=== PATIENT | female | born 1950 | race Caucasian/White ===

== ENCOUNTER 2018-03-30 00:05 | Emergency (ER) | payer OTHER ==
[2018-03-30 01:02] LABS: Absolute Lymphocytes (CBC) 2.2 K/uL (0.7-4.9); Absolute Monocytes 0.6 K/uL (0.1-1.3); Absolute Neutrophil 4.3 K/uL (1.8-8.0); Basophils % 0.9 % (0-1.3); Eosinophils % 2.9 % (0-4.4); Hematocrit 37.9 % (36.0-45.0); Lymphocytes % 29.6 % (15.3-44.8); MPV 9.1 fL (7.6-11.3); Monocytes % 8.1 % (3.3-12.3); RBC Red Blood Cell Count 4.13 M/uL (3.86-4.86)
[2018-03-30 01:03] LABS: Protime INR 0.96
[2018-03-30 01:17] LABS: ALT/SGPT 34 U/L (12-78); AST/SGOT 25 U/L (15-37); Albumin 3.8 g/dL (3.4-5.0); Alkaline Phosphatase 56 U/L (45-117); BUN Blood Urea Nitrogen 24 mg/dL (7-18); Bicarbonate 29 mmol/L (21-32); Bilirubin Direct < 0.1 mg/dL (0-0.2); Bilirubin Total 0.3 mg/dL (0.2-1.0); Glucose Level 92 mg/dL (74-106); Magnesium 2.1 mg/dL (1.8-2.4); NT PRO-BNP 155 pg/mL (<125); Potassium 4.1 mmol/L (3.5-5.1); Protein, Total 7.1 g/dL (6.4-8.2); Sodium Level 139 mmol/L (136-145); Troponin (Emerg Dept Use Only) < 0.02 ng/mL (0.0-0.045)
[2018-03-30] MEDS ORDERED: ASPIRIN 81 MG CHEWABLE TABLET ONE (02:04)
--- NOTE | 2018-03-30 04:25 | ER ---
Nurse's Notes [facility] Name: Adelia Driver Age: 67 yrs Sex: Female : 1950 Arrival Date: 03/30/2018 Time: 00:06 Bed 8 Private MD: Sukhdev Shrestha Diagnosis: Chest pain, unspecified Presentation: 03/30 00:14 Presenting complaint: Patient states: she just got in bed tonight and started having bb back and chest pain which is constant but does not radiate pain is 7/10 denies similar symptoms in the past. Transition of care: patient was not received from another setting of care. Onset of symptoms was March 30, 2018. Risk Assessment: Do you want to hurt yourself or someone else? Patient reports no desire to harm self or others. Initial Sepsis Screen: Does the patient meet any 2 criteria? No. Patient's initial sepsis screen is negative. Does the patient have a suspected source of infection? No. Patient's initial sepsis screen is negative. Care prior to arrival: None. 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 - Social history:: Smoking status: Patient/guardian denies using tobacco, Patient uses alcohol, occasionally. Patient/guardian denies using street drugs. - Ebola Screening: : No symptoms or risks identified at this time. Screenin:40 Abuse screen: Denies threats or abuse. Nutritional screening: No deficits noted. tl2 Tuberculosis screening: No symptoms or risk factors identified. Fall Risk None identified. Assessment: 00:40 General: Appears in no apparent distress. uncomfortable, Behavior is calm, cooperative, tl2 appropriate for age. Pain: Complains of pain in mid-sternal area Pain does not radiate. Pain currently is 5 out of 10 on a pain scale. Quality of pain is described as sharp, Pain began 1 hour ago. Is intermittent. Neuro: Level of Consciousness is awake, alert, obeys commands, Oriented to person, place, time, situation. Neuro: Denies dizziness. Cardiovascular: Chest pain is described as mild, quality is sharp, is located in anterior substernal area began 1 hour prior to arrival episodes are intermittent. Respiratory: Airway is patent Respiratory effort is even, unlabored, Respiratory pattern is regular, symmetrical. GI: No signs and/or symptoms were reported involving the gastrointestinal system. : No signs and/or symptoms were reported regarding the genitourinary system. Derm: Skin is pink, warm \T\ dry. 01:30 Reassessment: Patient appears in no apparent distress at this time. Patient and/or tl2 family updated on plan of care and expected duration. Pain level reassessed. Patient is alert, oriented x 3, equal unlabored respirations, skin warm/dry/pink. PA at bedside. 02:39 Reassessment: Patient appears in no apparent distress at this time. Patient and/or tl2 family updated on plan of care and expected duration. Pain level reassessed. Patient is alert, oriented x 3, equal unlabored respirations, skin warm/dry/pink. pt states her chest pain has not returned since arrival to ED. awaiting lab results Patient states feeling better. 03:40 Reassessment: Patient appears in no apparent distress at this time. Patient and/or tl2 family updated on plan of care and expected duration. Pain level reassessed. Patient is alert, oriented x 3, equal unlabored respirations, skin warm/dry/pink. awaiting troponin results. 04:41 Reassessment: Patient appears in no apparent distress at this time. Patient and/or tl2 family updated on plan of care and expected duration. Pain level reassessed. Patient is alert, oriented x 3, equal unlabored respirations, skin warm/dry/pink. pt verbalized understanding of discharge instructions, need for followup. Vital Signs: 00:17 BP 148 / 69; Pulse 58; Resp 14 S; Temp 98.2(O); Pulse Ox 100% on R/A; Weight 81.19 kg bb (R); Height 5 ft. 5 in. (165.10 cm) (R); Pain 7/10; 01:29 BP 110 / 68; Pulse 57; Resp 12; Pulse Ox 99% on R/A; tl2 02:39 BP 121 / 61; Pulse 54; Resp 18; Pulse Ox 95% on R/A; Pain 0/10; tl2 03:39 BP 113 / 54; Pulse 55; Resp 16; Pulse Ox 96% on R/A; tl2 00:17 Body Mass Index 29.79 (81.19 kg, 165.10 cm) Vitals: 00:40 Cardiac Rhythm Assessment Sinus miki. tl2 ED Course: 00:06 Patient arrived in ED. es 00:06 Sukhdev Shrestha MD is Private Physician. es 00:16 Triage completed. bb 00:17 Arm band placed on Patient placed in an exam room, on a stretcher. EKG completed in bb triage. Results shown to MD. Family accompanied patient. 00:21 Casey Cardenas PA is PHCP. jr8 00:21 Vincent Cleary MD is Attending Physician. jr8 00:39 Kathe Jackson RN is Primary Nurse. tl2 00:40 Patient has correct armband on for positive identification. Bed in low position. Call tl2 light in reach. Side rails up X 1. night monitor on. Pulse ox on. NIBP on. 00:40 Inserted saline lock: 22 gauge in right antecubital area, using aseptic technique. tl2 Blood collected. Patient maintains SpO2 saturation greater than 95% on room air. 00:56 X-ray completed. Portable x-ray completed in exam room. Patient tolerated procedure sg4 well. 00:57 XRAY Chest (1 view) In Process Unspecified. EDMS 04:24 Tye Fernandez MD is Referral Physician. kdr 04:41 No provider procedures requiring assistance completed. IV discontinued, intact, tl2 bleeding controlled, No redness/swelling at site. Pressure dressing applied. Administered Medications: 02:02 Drug: Aspirin Chewable Tablet 324 mg Route: PO; tl2 04:42 Follow up: Response: No adverse reaction tl2 Outcome: 04:24 Discharge ordered by MD. kdr 04:41 Discharged to home ambulatory, with family. tl2 04:41 Condition: stable 04:41 Discharge instructions given to patient, Instructed on discharge instructions, follow up and referral plans. Demonstrated understanding of instructions, follow-up care. 04:42 Patient left the ED. tl2 Signatures: Dispatcher [employer] EDKS Vincent Cleary MD MD kdr Salyer, Edna es Ballard, Brenda, RN RN bb Casey Cardenas PA PA jr8 Kathe Jackson, RN RN tl2 Chula Garcia sg4 Corrections: (The following items were deleted from the chart) 01:29 01:28 BP 132 / 90; Pulse 59bpm; Resp 16bpm; Pulse Ox 97% RA; tl2 tl2
--- NOTE | 2018-03-30 04:25 | EDPHYS ---
Physician Documentation [facility] Name: Adelia Driver Age: 67 yrs Sex: Female : 1950 Arrival Date: 03/30/2018 Time: 00:06 Bed 8 Private MD: Sukhdev Shrestha ED Physician Vincent Cleary HPI: 03/30 01:42 This 67 yrs old Female presents to ER via Ambulatory with complaints of Chest jr8 Pain, Back Pain. 01:42 Onset: acutely, today. Associated signs and symptoms: The patient has no apparent jr8 associated signs or symptoms. The chest pain is described as squeezing. Duration: The patient or guardian reports a single episode, that lasted 2 hour(s). The patient has not experienced similar symptoms in the past. The patient has not recently seen a physician. Patient stated that she went to lay down at 11pm tonight. At 11:15 had sudden back pain between shoulder blades that went to mid chest. Denies any other symptoms. Has completely resolved since then. Denies having this in past . 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 - Social history:: Smoking status: Patient/guardian denies using tobacco, Patient uses alcohol, occasionally. Patient/guardian denies using street drugs. - Ebola Screening: : No symptoms or risks identified at this time. ROS: 01:42 Eyes: Negative for injury, pain, redness, and discharge, ENT: Negative for injury, jr8 pain, and discharge, Neck: Negative for injury, pain, and swelling, Respiratory: Negative for shortness of breath, cough, wheezing, and pleuritic chest pain, Abdomen/GI: Negative for abdominal pain, nausea, vomiting, diarrhea, and constipation, Back: Negative for injury and pain, MS/Extremity: Negative for injury and deformity, Skin: Negative for injury, rash, and discoloration, Neuro: Negative for headache, weakness, numbness, tingling, and seizure. 01:42 Cardiovascular: Positive for chest pain, Negative for edema, orthopnea, palpitations, paroxysmal nocturnal dyspnea. Exam: 01:42 Eyes: Pupils equal round and reactive to light, extra-ocular motions intact. Lids and jr8 lashes normal. Conjunctiva and sclera are non-icteric and not injected. Cornea within normal limits. Periorbital areas with no swelling, redness, or edema. ENT: Nares patent. No nasal discharge, no septal abnormalities noted. Tympanic membranes are normal and external auditory canals are clear. Oropharynx with no redness, swelling, or masses, exudates, or evidence of obstruction, uvula midline. Mucous membranes moist. Neck: Trachea midline, no thyromegaly or masses palpated, and no cervical lymphadenopathy. Supple, full range of motion without nuchal rigidity, or vertebral point tenderness. No Meningismus. Chest/axilla: Normal chest wall appearance and motion. Nontender with no deformity. No lesions are appreciated. Cardiovascular: Regular rate and rhythm with a normal S1 and S2. No gallops, murmurs, or rubs. Normal PMI, no JVD. No pulse deficits. Respiratory: Lungs have equal breath sounds bilaterally, clear to auscultation and percussion. No rales, rhonchi or wheezes noted. No increased work of breathing, no retractions or nasal flaring. Abdomen/GI: Soft, non-tender, with normal bowel sounds. No distension or tympany. No guarding or rebound. No evidence of tenderness throughout. Back: No spinal tenderness. No costovertebral tenderness. Full range of motion. Skin: Warm, dry with normal turgor. Normal color with no rashes, no lesions, and no evidence of cellulitis. MS/ Extremity: Pulses equal, no cyanosis. Neurovascular intact. Full, normal range of motion. Neuro: Awake and alert, GCS 15, oriented to person, place, time, and situation. Cranial nerves II-XII grossly intact. Motor strength 5/5 in all extremities. Sensory grossly intact. Cerebellar exam normal. Normal gait. Vital Signs: 00:17 BP 148 / 69; Pulse 58; Resp 14 S; Temp 98.2(O); Pulse Ox 100% on R/A; Weight 81.19 kg bb (R); Height 5 ft. 5 in. (165.10 cm) (R); Pain 7/10; 01:29 BP 110 / 68; Pulse 57; Resp 12; Pulse Ox 99% on R/A; tl2 02:39 BP 121 / 61; Pulse 54; Resp 18; Pulse Ox 95% on R/A; Pain 0/10; tl2 03:39 BP 113 / 54; Pulse 55; Resp 16; Pulse Ox 96% on R/A; tl2 00:17 Body Mass Index 29.79 (81.19 kg, 165.10 cm) bb MDM: 00:30 Patient medically screened. jr8 03:28 The patient was given aspirin in the Emergency Department. Data reviewed: vital signs, jr8 nurses notes, lab test result(s), EKG, radiologic studies, plain films. Data interpreted: Pulse oximetry: on room air is 95 %. Interpretation: normal. Counseling: I had a detailed discussion with the patient and/or guardian regarding: the historical points, exam findings, and any diagnostic results supporting the discharge/admit diagnosis, lab results, radiology results, the need for outpatient follow up, a jet mechanic, to return to the emergency department if symptoms worsen or persist or if there are any questions or concerns that arise at home. 03/30 00:31 Order name: Basic Metabolic Panel; Complete Time: 01:03/30 00:31 Order name: CBC with Diff; Complete Time: 01:06 03/30 00:31 Order name: LFT's; Complete Time: 03/30 00:31 Order name: Magnesium; Complete Time: :03/30 00:31 Order name: NT PRO-BNP; Complete Time: :03/30 00:31 Order name: PT-INR; Complete Time: 01:13 03/30 00:31 Order name: Troponin (emerg Dept Use Only); Complete Time: 01:03/30 00:31 Order name: XRAY Chest (1 view) 03/30 00:31 Order name: EKG; Complete Time: 00:32 03/30 00:31 Order name: Cardiac monitoring; Complete Time: 00:39 03/30 00:31 Order name: EKG - Nurse/Tech; Complete Time: 00:39 03/30 00:31 Order name: IV Saline Lock; Complete Time: 00:39 03/30 02:56 Order name: Troponin (emerg Dept Use Only); Complete Time: 04:24 8 03/30 00:31 Order name: Labs collected and sent; Complete Time: 00:39 8 03/30 00:31 Order name: O2 Per Protocol; Complete Time: 00:39 8 03/30 00:31 Order name: O2 Sat Monitoring; Complete Time: 00:40 jr8 Administered Medications: 02:02 Drug: Aspirin Chewable Tablet 324 mg Route: PO; tl2 04:42 Follow up: Response: No adverse reaction tl2 Disposition: 04:24 Co-signature as Attending Physician, Vincent Cleary MD I agree with the assessment and kdr plan of care. Disposition: 03/30/18 04:24 Discharged to Home. Impression: Chest pain, unspecified. - Condition is Stable. - Discharge Instructions: Nonspecific Chest Pain. - Medication Reconciliation Form, Thank You Letter form. - Follow up: Tye Fernandez; When: 5 - 6 days; Reason: Recheck today's complaints, Continuance of care, Re-evaluation by your physician. - Problem is new. - Symptoms are resolved. Signatures: Dispatcher [employer] EDWI Vincent Cleary MD MD kdr Carmen Quintanilla RN RN bb Casey Cardenas PA PA jr8 Kathe Jackson RN RN tl2 Corrections: (The following items were deleted from the chart) 04:42 04:24 03/30/2018 04:24 Discharged to Home. Impression: Chest pain, unspecified. tl2 Condition is Stable. Discharge Instructions: Nonspecific Chest Pain. Forms are Medication Reconciliation Form, Thank You Letter, Antibiotic Education, Prescription Opioid Use. Follow up: Tye Fernandez; When: 5 - 6 days; Reason: Recheck today's complaints, Continuance of care, Re-evaluation by your physician. Problem is new. Symptoms are resolved. kdr
--- NOTE | 2018-03-30 08:27 | EKG ---
Test Date: 2018-03-30 Test Time: 00:10:35 Application Integration Specialist: SONYA MEASUREMENT RESULTS: Intervals: Rate: 52 WA: 146 QRSD: 88 QT: 434 QTc: 403 [place]: P: 71 WA: 146 QRS: 45 T: 56 INTERPRETIVE STATEMENTS: Sinus bradycardia Otherwise normal ECG No previous ECG available for comparison Electronically Signed On 03-30-18 08:26:21 PIANO TECHNICIAN by Bib Bowens
--- NOTE | 2018-03-30 09:44 | RAD REPORT ---
EXAM DESCRIPTION: RAD - Chest Single View - 03/30/2018 12:57 am CLINICAL HISTORY: Back pain, chest pain COMPARISON: CT head and cervical September 2015. TECHNIQUE: AP portable chest image was obtained 0051 hours . FINDINGS: Lungs are clear. A few small granulomas are seen. Heart and vasculature are normal. No catalino surable pleural effusion and no pneumothorax. Fullness along the right side mediastinum believed to b e normal vasculature. Similar appearance was seen on a September 2015 CT law writer film. No acute aortic findi ngs suspected. IMPRESSION: No acute cardiopulmonary process.
== END 2018-03-30 04:42 | disposition home or self-care (01) ==
LOC: ER 00:05
DX: R07.9 Chest pain, unspecified (principal)
CPT/HCPCS: 36415; 71045; 80048; 80076; 83735; 83880; 84484; 85025; 85610; 93005; 99285

== ENCOUNTER 2023-09-06 08:19 | Day surgery (SDC) | payer OTHER ==
[2023-09-04 13:11] LABS: Absolute Eosinophils 0.1 K/uL (0-0.5); Absolute Lymphocytes (CBC) 1.4 K/uL (0.7-4.9); Absolute Monocytes 0.4 K/uL (0.1-1.3); Absolute Neutrophil 1.7 K/uL (1.8-8.0); Basophils % 0.6 % (0-1.3); Eosinophils % 3.7 % (0-4.4); Hematocrit 37.1 % (36.0-45.0); Hemoglobin 12.4 g/dL (12.0-15.0); Lymphocytes % 37.3 % (15.3-44.8); MCH 31.2 pg (27.0-35.0); MCHC 33.4 g/dL (32.0-36.0); MCV 93.6 fL (80-100); MPV 8.6 fL (7.6-11.3); Monocytes % 10.3 % (3.3-12.3); Neutrophils % 48.1 % (41.7-73.7); Platelets 190 thou/uL (152-406); RBC Red Blood Cell Count 3.96 M/uL (3.86-4.86); Red Cell Distribution Width 13.5 % (12.1-15.2)
--- NOTE | 2023-09-04 13:16 | EKG ---
Test Date: 2023-09-04 Test Time: 13:05:50 Materials Planning Manager: IVETTE MEASUREMENT RESULTS: Intervals: Rate: 62 CT: 140 QRSD: 86 QT: 418 QTc: 424 [place]: P: 68 CT: 140 QRS: -28 T: 76 INTERPRETIVE STATEMENTS: Normal sinus rhythm with sinus arrhythmia Normal ECG Compared to ECG 03/30/2018 00:10:35 Sinus bradycardia no longer present Electronically Signed On 09-04-23 13:15:59 CDT by Luis Kahn
[2023-09-04 13:25] LABS: Anion Gap 6.1 mEq/L (5.0-15.0); Potassium 4.1 mEq/L (3.5-5.1)
--- NOTE | 2023-09-04 13:45 | RAD REPORT ---
EXAM DESCRIPTION: Mariah Ortiz (2 Views)09/04/2023 1:18 pm CLINICAL HISTORY: Preop for vaginal surgery COMPARISON: 2018 FINDINGS: Lungs are moderately hyperaerated. The lungs appear clear of acute infiltrate. The heart is normal size IMPRESSION: No acute abnormalities displayed
[2023-09-06] MEDS ORDERED: SCOPOLAMINE HYDROBROMIDE PATCH TD ONE (08:30)
[2023-09-06] MEDS ORDERED: FENTANYL CITR 100 MCG/2 ML ONE (09:03)
[2023-09-06] MEDS ORDERED: propofoL 200 MG/20 ML VIAL IV ONE ×2 (09:03→10:37)
[2023-09-06] MEDS: Ringers Lactate 1,000 ML IV ONE (09:03)
[2023-09-06] MEDS ORDERED: ONDANSETRON 4 MG/2 ML VIAL ONE (09:03)
[2023-09-06] MEDS ORDERED: LIDOCAINE 2% MPF 5 ML VIAL ONE (09:03)
[2023-09-06] MEDS: CEFAZOLIN SODIUM 2 GM/VIAL ONE (09:27)
[2023-09-06] MEDS: LIDOCAINE HCL/EPINEPHRINE 20 ML MDV ONE (09:27)
[2023-09-06] MEDS ORDERED: EPHEDRINE SULF 50 MG/ML VIAL ONE (10:53)
[2023-09-06 11:55] VITALS: O2SAT 100
[2023-09-06 12:30] VITALS: BP 150/97
[2023-09-06 12:48] VITALS: TEMP 97
--- NOTE | 2023-09-06 22:46 | OP ---
Date of Procedure: 09/06/2023 Surgeon: Baylee Alaniz MD Appliance Servicer: No assistants. Preoperative Diagnosis: Vulvar intraepithelial neoplasia 3. 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 Procedures Performed: 1.Vulvar colposcopy and wide local excision of vulvar intraepithelial neoplasia 3. 2.Perineoplasty with perineal body reconstruction. Anesthesia: General with LMA, converted to endotracheal tube. Specimens: Vulvar lesion marked with a long stitch at the superior margin and a short stitch at the left lateral margin. Estimated Blood Loss: 25. Fluids: 800. Urine Output: No catheter placed. The patient voided prior to the procedure. Complications: No complications. Drains: No drains. Patient's Condition: Stable. Findings: The colposcopy showed a well-circumscribed lesion on the perineum, extending slightly over into the distal portion of the vestibule. Margins of at least 5 mm taken on all sides excised. The perineal body defect was obvious and had to be corrected alongside the perineoplasty to reconstruct the defect. Full-thickness skin was excised in this area, and reconstruction performed with advancement flaps from the vagina and lateral margin s and on the perineum. 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 This was then examined under colposcopy and biopsied, which showed NIRU 3. She was counseled on the pathogenesis of this lesion in relation to HPV, and treatment of preference was wide local excision. After the patient was consented, she was then brought to the hospital. She was also consented for a perineoplasty or perineorrhaphy. The perineocele repair as indicated during the procedure. Procedure In Detail: After informed consent was re-verified, she was taken back to OR, placed in a s upine fashion on the operating table. General anesthesia was given. 2 g of Ancef was given. SCDs w ere started. Time-out was done. Positioning was checked. Vulvar colposcopy was performed. The lesion was well visualized. No other satellite lesions were no keshawn, and this was very circumscribed. Betadine prep was done and appropriate draping was placed on all sides. After changing the gloves, then the margins of the excision were marked with a marking pen, making portillo re there was 5 mm on all sides. 1% lidocaine with epinephrine was injected, 15 cc in and around the lesion. The lesion was excised with a 15 blade. The margins were all incised, full thickness into t he skin and then once I got into the subcutaneous tissues, this was excised with the help of the mono polar cautery needle tip. The lesion was marked as dictated above with a long stitch at the superior margin and a short stitch at the left margin. This was handed off for permanent pathology. Perineoplasty: Advancement flaps were created on the skin on the perineum, on the lateral margins, i nferior margin as well as on upper lateral margins. The vaginal epithelium was also raised and posterior rectovaginal septum was exposed. The perineal b selene was not fully intact with the superficial transverse perinei , so the excision went down on to the sphincter, which is the external anal sphincter. The closure here was performed with 3-0 Vicryl sutures in an interrupted fashion [id number] x2 to bring these together. Then, with a 2- 0 Vicryl in a continuous running fashion, 2 layers of closure was performed to reconstruct the perine al body and take the tension off the edges of the excision. Then, 2-0 Vicryl was then used with 2 in terrupted sutures to bring the distal rectovaginal septum and re-attach it to the perineal body. Onc e this was completed, 2-0 Vicryl was used to continuously close the vaginal epithelium until the top part of the vestibule, then 3-0 Vicryl was used to perform a subcutaneous closure on the perineum and vestibule, and closed in a subcuticular fashion coming back up. Rectal exam was performed and did n ot demonstrate any trauma or foreign body in the rectum. The patient was recovered from anesthesia. Instrument, needle, and sponge counts were correct at the end of the case. The patient tolerated th e procedure well. Her family was debriefed about her procedure, and she will follow up in 1 week for pathology results, and 1-week postop appointment, followed by 6-week postop appointment. Instructio ns given. JOIE/LAVONNE Voice ID: [id number] Report ID: [id number]
== END 2023-09-06 13:12 | disposition home or self-care (01) ==
LOC: OR 08:19
PROVIDERS: ATTEND Obstetrics & Gynecology
PROC: 0HQ9XZZ Repair Perineum Skin, External Approach (ICD-10-PCS; 2023-09-06)
PROC: 0UU Female Reproductive System, Supplement (ICD-10-PCS; 2023-09-06)
PROC: 0UBM0ZZ Excision of Vulva, Open Approach (ICD-10-PCS; principal; 2023-09-06 09:30)
DX: D07.1 Carcinoma in situ of vulva (principal)
CPT/HCPCS: 11622; 14040; 56810; 93005; 85025; 80048; 36415; 88305; 71046; J2704 ×2; J2001; J3010; J2405; J7120

== ENCOUNTER 2024-01-26 11:49 | Emergency (ER) | payer OTHER ==
--- NOTE | 2024-01-26 13:20 | EDPHYS ---
Physician Documentation [facility] Name: Adelia Driver Age: 73 yrs Sex: Female : 1950 Arrival Date: 01/26/2024 Time: 11:49 Bed 12 Private MD: ED Physician Franko Chu HPI: 01/25 12:19 This 73 yrs old Female presents to ER via Ambulatory with complaints of Wrist Injury - kb left. 12:19 Pt is a 73 year old female who presents for pain and swelling to left wrist after a kb fall on her patio yesterday. States pain increased when twisting wrist. Denies any other injuries. Historical: - Allergies: 12:16 No Known Allergies; ss - PMHx: 12:16 None; ss - Immunization history:: Client reports receiving the 2nd dose of the Covid vaccine. - Infectious Disease History:: Denies. - Social history:: Smoking status: Patient denies any tobacco usage or history of. ROS: 12:18 Constitutional: As per HPI kb Exam: 12:18 Constitutional: This is a well developed, well nourished patient who is awake, alert, kb and in no acute distress. Head/Face: Normocephalic, atraumatic. ENT: Moist Mucous membranes Cardiovascular: Regular rate Respiratory: Respirations even and unlabored. No increased work of breathing. Talking in full sentences Skin: Warm, dry with normal turgor. Normal color. Neuro: Awake and alert, GCS 15, oriented to person, place, time, and situation. 12:18 Musculoskeletal/extremity: Extremities: grossly normal except: noted in the left forearm: decreased ROM, pain, swelling, tenderness, ROM: limited active range of motion, Circulation is intact in all extremities. Sensation intact. Vital Signs: 12:13 BP 119 / 57; Pulse 62; Resp 16; Temp 98.2(O); Pulse Ox 98% on R/A; Weight 76.66 kg; ss Height 5 ft. 5 in. ; Pain 7/10; 12:13 Body Mass Index 28.12 (76.66 kg, 165.1 cm) 12:13 Pain Scale: Adult ss 12:13 0/10 when not moving. ss MDM: 11:54 Medical Screening Exam initiated kb 12:18 Differential diagnosis: fracture, sprain. Data reviewed: vital signs, nurses notes. kb 13:08 Counseling: I had a detailed discussion with the patient and/or guardian regarding the kb historical points, exam findings, and any diagnostic results supporting the discharge/admit diagnosis, radiology results, the need for outpatient follow up, a orthopedic surgeon, to return to the emergency department if symptoms worsen or persist or if there are any questions or concerns that arise at home. 13:19 Historians other than the Patient: Spouse/Significant Other: spouse. kb 01/25 12:13 Order name: Forearm Left XRAY ss 01/25 13:08 Order name: Sugar Tong Forearm Splint; Complete Time: 13:32 kb 01/25 13:08 Order name: Splint; Complete Time: 13:32 kb Administered Medications: No medications were administered Disposition Summary: 01/26/24 13:20 Discharge Ordered Notes: Location: Home kb Condition: Stable kb Diagnosis - Distal radius fracture - left kb Followup: kb - With: Emergency Department - When: As needed - Reason: Worsening of condition Followup: kb - With: Private Physician - When: 2 - 3 days - Reason: Recheck today's complaints, Continuance of care, Re-evaluation by your physician Discharge Instructions: - Discharge Summary Sheet kb - Radial Fracture kb Forms: - Medication Reconciliation Form kb - Antibiotic Education kb - Prescription Opioid Use kb - Patient Portal Instructions kb - Leadership Thank You Letter kb Signatures: Dispatcher [employer] Marium Fisher, LYNN-Raymond AGUIRREP-Mary Echevarria, RN RN ss
--- NOTE | 2024-01-26 13:20 | ER ---
Nurse's Notes [facility] Name: Adelia Driver Age: 73 yrs Sex: Female : 1950 Arrival Date: 01/26/2024 Time: 11:49 Bed 12 Private MD: Diagnosis: Distal radius fracture - left Presentation: 01/25 12:13 Chief complaint: Patient states: L wrist/ forearm pain after falling from a standing ss position. Coronavirus screen: Client denies travel out of the [place] in the last 14 days. Ebola Screen: Patient denies exposure to infectious person. Patient denies travel to an Ebola-affected area in the 21 days before illness onset. Initial Sepsis Screen: Does the patient meet any 2 criteria? No. Patient's initial sepsis screen is negative. Does the patient have a suspected source of infection? No. Patient's initial sepsis screen is negative. Risk Assessment: Do you want to hurt yourself or someone else? Patient reports no desire to harm self or others. Onset of symptoms was January 25, 2024. 12:13 Method Of Arrival: Ambulatory ss 12:13 Acuity: JOE 4 ss Historical: - Allergies: 12:16 No Known Allergies; ss - PMHx: 12:16 None; ss - Immunization history:: Client reports receiving the 2nd dose of the Covid vaccine. - Infectious Disease History:: Denies. - Social history:: Smoking status: Patient denies any tobacco usage or history of. Vital Signs: 12:13 BP 119 / 57; Pulse 62; Resp 16; Temp 98.2(O); Pulse Ox 98% on R/A; Weight 76.66 kg; ss Height 5 ft. 5 in. ; Pain 7/10; 12:13 Body Mass Index 28.12 (76.66 kg, 165.1 cm) ss 12:13 Pain Scale: Adult ss 12:13 0/10 when not moving. ED Course: 11:53 Patient arrived in ED. ra3 11:54 Marium Choi FNP-C is PHCP. kb 11:54 Franko Chu MD is Attending Physician. kb 12:16 Triage completed. ss 12:16 Arm band placed on left wrist. ss 13:02 Forearm Left XRAY In Process Unspecified. EDMS 13:13 Mary Quintero, RN is Primary Nurse. ss 13:33 No provider procedures requiring assistance completed. Patient did not have IV access ss during this emergency room visit. Orthoglass splint: Sugar tong splint applied on left arm. Sling applied to left arm. Administered Medications: No medications were administered Outcome: 13:20 Discharge ordered by . kb 13:37 Patient left the ED. Signatures: Dispatcher [employer] EDAZ Marium Choi, LYNN-C PACKER INSPECTOR-Mary Echevarria, RN RN Ashanti Alan ra3
--- NOTE | 2024-01-26 13:48 | RAD REPORT ---
EXAMINATION: XR FOREARM CLINICAL INDICATION: Female, 73 years old. [facility] MAIN PAIN Bed: TECHNIQUE: 2 view radiograph of the left forearm were obtained. . COMPARISON: No prior exam. FINDINGS: No evidence of fracture or dislocation. Normal alignment. No evidence of focal bone lesion. Moderate degenerative changes at the thumb base. Soft tissues are unremarkable. IMPRESSION: No acute or significant abnormalities.
[2024-01-26 22:58] VITALS: BP 119/57; TEMP 98.2; O2SAT 98
== END 2024-01-26 13:37 | disposition home or self-care (01) ==
LOC: ER 11:49
PROC: 2W3DX1Z Immobilization of Left Lower Arm using Splint (ICD-10-PCS; principal; 2024-01-26)
DX: S52.502A Unspecified fracture of the lower end of left radius, initial encounter for closed fracture (principal); W18.30XA Fall on same level, unspecified, initial encounter
CPT/HCPCS: 99282